=== PATIENT | male | born 1960 | race African-American/Black ===

== ENCOUNTER 2016-11-23 05:39 | Emergency (ER) | payer OTHER, SELFPAY ==
[2016-11-23] MEDS ORDERED: Lidocaine Viscous Sol 2% 15 ml UD Cup ONE (06:33)
== END 2016-11-23 06:45 | disposition home or self-care (01) ==
LOC: MADERS 05:39
DX: T18.5XXA Foreign body in anus and rectum, initial encounter (principal); E11.9 Type 2 diabetes mellitus without complications; I10 Essential (primary) hypertension; F17.210 Nicotine dependence, cigarettes, uncomplicated; X58.XXXA Exposure to other specified factors, initial encounter
CPT/HCPCS: 99283

== ENCOUNTER 2017-12-20 15:37 | Emergency (ER) | payer SELFPAY ==
[2017-12-20] MEDS ORDERED: Ketorolac Tromethamine 30 MG/ML VIAL ONE (15:59)
[2017-12-20] MEDS ORDERED: diphenhydrAMINE 50 MG/ML VIAL ONE (15:59)
[2017-12-20] MEDS ORDERED: Promethazine HCl 25 MG/ML VIAL ONE (15:59)
== END 2017-12-20 16:23 | disposition home or self-care (01) ==
LOC: MADERS 15:37
DX: R51 Headache (principal); E11.9 Type 2 diabetes mellitus without complications; I10 Essential (primary) hypertension; F17.210 Nicotine dependence, cigarettes, uncomplicated; R11.10 Vomiting, unspecified
CPT/HCPCS: 96372; 99283; J1200; J1885; J2550

== ENCOUNTER 2018-08-11 10:47 | Emergency (ER) | payer SELFPAY ==
[2018-08-11 11:19] LABS: #Basophils 0.1 thou/uL (0.0-0.2); #Eosinphils 0.1 thou/uL (0.0-0.7); #Monocytes 0.6 thou/uL (0.11-0.59); #Neutrophils 6.5 thou/uL (1.40-6.50); %Eosinophils 0.7 % (0.0-10.0); %Lymphocytes 12.1 % (21.0-51.0); %Monocytes 7.1 % (0.0-10.0); %Neutrophils 79.2 % (42.0-75.0); Hemoglobin 14.7 g/dL (14.0-18.0); Mean Corpuscular HGB CONC 33.6 g/dL (32.0-36.0); Mean Corpuscular Volume 92.3 fL (78.0-98.0); Platelet Count 220 thou/uL (130-400); RBC Distribution Width 11.4 % (11.5-14.5); Red Blood Cell (RBC) Count 4.75 mill/uL (4.70-6.10); White Blood Cell (WBC) Count 8.2 thou/uL (4.8-10.8)
[2018-08-11 11:22] LABS: Bilirubin Small (Negative); Blood, Urine Large (Negative); Clarity Cloudy (Clear); Glucose, Urine (Dipstick) Negative (Negative); Leukocyte Negative (Negative); Nitrite Negative (Negative); Protein, Urine (Dipstick) 100 mg/dL (Neg-Trace); pH, Urine 5.5 (5.0-9.0)
[2018-08-11 11:23] LABS: Bacteria/HPF Rare-Few HPF (None Seen); RBC/HPF GREATER THAN 50-TNTC HPF (0-3); Squamous Epithelial 0-3 HPF (0-3); WBC/HPF 0-3 HPF (0-3)
[2018-08-11 11:35] LABS: ALT (SGPT) 18 U/L (8-55); AST (SGOT) 20 U/L (5-34); Albumin 4.2 g/dL (3.5-5.0); Alkaline Phosphatase 80 U/L (40-150); Anion Gap 13 mmol/L (10-20); BUN (Urea Nitrogen) 13 mg/dL (8.4-25.7); Bilirubin, Total 1.2 mg/dL (0.2-1.2); Calc. Creatinine Clearance 0 mL/min (70-130); Calcium 9.4 mg/dL (7.8-10.44); Carbon Dioxide 31 mmol/L (22-29); Chloride 98 mmol/L (98-107); Estimated GFR-MDRD Greater than 90; Globulin 2.9 g/dL (2.4-3.5); Glucose 77 mg/dL (70-105); Lipase 8 U/L (8-78); Potassium 3.8 mmol/L (3.5-5.1); Protein, Total 7.1 g/dL (6.0-8.3); Sodium 138 mmol/L (136-145)
--- NOTE | 2018-08-11 11:39 | CT ---
CT ABDOMEN AND PELVIS PERFORMED WITHOUT CONTRAST ENHANCEMENT: HISTORY: Bilateral low back pain with blood in urine x 2 days. There are some infiltrative changes of the left lower lobe. The liver, spleen, and pancreas regions appear unremarkable on this noncontrast study. The gallbladd er is somewhat contracted. Right and left adrenal glands and right and left kidneys are normal in size. No obstruction. No beau al calculi. No mass identified on this noncontrast study. No ureteral calculi are seen. The lack o f intraabdominal fat degrades detail. No significant periaortic or mesenteric adenopathy is apprecia rebecca. There is a retroaortic left renal vein incidentally seen. CT OF PELVIS PERFORMED WITHOUT CONTRAST ENHANCEMENT: There is prostate calcification seen. The bladder is not distended. Appendix is difficult to defini tively identify. IMPRESSION: 1. Left lower lobe infiltrative-appearing lung change. 2. No renal or ureteral calculi and no obstruction. POS: [facility]
--- NOTE | 2018-08-11 12:22 | RAD ---
CHEST ONE VIEW: HISTORY: Chest pain. FINDINGS: Heart size and mediastinum are within normal limits. Lungs are clear of any infiltrative process. N o significant bony findings. IMPRESSION: No active intrathoracic disease. POS: [facility]
== END 2018-08-11 12:45 | disposition home or self-care (01) ==
LOC: MADERS 10:47
DX: M54.9 Dorsalgia, unspecified (principal); R30.0 Dysuria; I10 Essential (primary) hypertension; E11.9 Type 2 diabetes mellitus without complications; F17.210 Nicotine dependence, cigarettes, uncomplicated
CPT/HCPCS: 36415; 71045; 74176; 80053; 81003; 81015; 83690; 85025

== ENCOUNTER 2021-07-15 07:53 | Emergency (ER) | payer BC, SELFPAY ==
[2021-07-15] MEDS ORDERED: Sodium Chloride 0.9% 2,000 ML ONE (10:52)
[2021-07-15] MEDS ORDERED: Clindamycin/D5W 600 mg/50 ml Premix Bag ONE (10:52)
[2021-07-15 11:03] LABS: INR-International Normal Ratio 0.9; Prothrombin Time 12.4 sec (12.0-14.7)
[2021-07-15 11:04] LABS: #Basophils 0.1 thou/uL (0.0-0.2); #Lymphocytes 1.3 thou/uL (1.20-3.40); #Monocytes 0.5 thou/uL (0.11-0.59); #Neutrophils 5.7 thou/uL (1.40-6.50); %Basophils 1.3 % (0.0-1.0); %Eosinophils 0.3 % (0.0-10.0); %Lymphocytes 16.9 % (21.0-51.0); %Neutrophils 74.5 % (42.0-75.0); Hemoglobin 16.2 g/dL (14.0-18.0); Mean Corpuscular HGB CONC 33.1 g/dL (32.0-36.0); Mean Corpuscular Hemoglobin 30.1 pg (27.0-31.0); Mean Platelet Volume 7.8 fL (7.4-10.4); Platelet Count 261 thou/uL (130-400); Red Blood Cell (RBC) Count 5.38 mill/uL (4.70-6.10); White Blood Cell (WBC) Count 7.7 thou/uL (4.8-10.8)
[2021-07-15 11:10] LABS: Acetaminophen Less than 6.0 mcg/mL (10.0-30.0); Alcohol Less than 10 mg/dL (Less than 10); Salicylate Less than 8.0 mg/dL (15.0-30.0)
[2021-07-15 11:14] LABS: ALT (SGPT) 19 U/L (8-55); AST (SGOT) 37 U/L (5-34); Albumin 4.4 g/dL (3.4-4.8); Alkaline Phosphatase 92 U/L (40-110); Anion Gap 18 mmol/L (10-20); BUN (Urea Nitrogen) 11 mg/dL (8.4-25.7); Bilirubin, Total 1.6 mg/dL (0.2-1.2); Calc. Creatinine Clearance 0 mL/min (70-130); Calcium 9.3 mg/dL (7.8-10.44); Carbon Dioxide 25 mmol/L (23-31); Chloride 102 mmol/L (98-107); Globulin 3.3 g/dL (2.4-3.5); Glucose 97 mg/dL (80-115); Potassium 4.8 mmol/L (3.5-5.1); Protein, Total 7.7 g/dL (5.8-8.1); Sodium 140 mmol/L (136-145)
[2021-07-15 11:46] LABS: SARS-CoV-2 NAA Rapid Test Not Detected (NotDetected)
== END 2021-07-15 12:03 | disposition short-term general hospital (02) ==
LOC: MADERS 07:53
DX: S02.612A Fracture of condylar process of left mandible, initial encounter for closed fracture (principal); S02.611A Fracture of condylar process of right mandible, initial encounter for closed fracture; S02.66XA Fracture of symphysis of mandible, initial encounter for closed fracture; S02.2XXA Fracture of nasal bones, initial encounter for closed fracture; I10 Essential (primary) hypertension; E11.9 Type 2 diabetes mellitus without complications; F17.210 Nicotine dependence, cigarettes, uncomplicated; Y04.2XXA Assault by strike against or bumped into by another person, initial encounter; Z20.822 Contact with and (suspected) exposure to COVID-19
CPT/HCPCS: 70450; 70486; 80053; 80307; 85025; 85610; 96365; J3490; J7050; U0002

== ENCOUNTER 2021-07-21 08:39 | Emergency (ER) | payer BC | END 2021-07-21 09:49 | disposition home or self-care (01) | LOC: MADERS 08:39 | DX: G89.18 Other acute postprocedural pain (principal); S02.2XXD Fracture of nasal bones, subsequent encounter for fracture with routine healing; S02.6 Fracture of mandible; S02.621 Fracture of subcondylar process of right mandible; I10 Essential (primary) hypertension; E11.9 Type 2 diabetes mellitus without complications; F17.210 Nicotine dependence, cigarettes, uncomplicated; Z79.899 Other long term (current) drug therapy | CPT/HCPCS: 99283 ==

== ENCOUNTER 2025-05-10 08:15 | Emergency (ER) | payer OTHER ==
[2025-05-10] MEDS ORDERED: HYDROcodone/Acetaminophen 5/325 mg Tablet ONE (08:46)
[2025-05-10] MEDS ORDERED: Bacitracin 1 PK ONE (08:47)
[2025-05-10 08:58] LABS: INR-International Normal Ratio 1.0; Prothrombin Time 13.0 sec (12.0-14.7)
[2025-05-10 08:59] LABS: Hematocrit 41.1 % (42.0-52.0); Hemoglobin 12.9 g/dL (14.0-18.0); Mean Corpuscular Hemoglobin 29.8 pg (27.0-31.0); Mean Corpuscular Volume 94.8 fl (78.0-98.0); PTT 32.0 sec (22.9-36.1); Platelet Count 247 10x3/uL (130-400); Red Blood Cell (RBC) Count 4.33 mill/uL (4.70-6.10); White Blood Cell (WBC) Count 6.8 10x3/uL (4.8-10.8)
[2025-05-10] MEDS ORDERED: Iopamidol 370 76% 100 ML VIAL ONE (09:00)
[2025-05-10 09:05] LABS: ALT (SGPT) 10 U/L (Less than 45); AST (SGOT) 20 U/L (11-34); Albumin 3.5 g/dL (3.1-4.5); Alkaline Phosphatase 67 U/L (40-110); Anion Gap 15 mmol/L (10-20); BUN (Urea Nitrogen) 14 mg/dL (8.4-25.7); Bilirubin, Total 0.8 mg/dL (0.3-1.2); Calc. Creatinine Clearance 0 mL/min (70-130); Calcium 8.8 mg/dL (7.8-10.44); Carbon Dioxide 25 mmol/L (23-31); Chloride 105 mmol/L (98-107); Globulin 3.1 g/dL (2.4-3.5); Glucose 110 mg/dL (80-115); Potassium 3.9 mmol/L (3.5-5.1); Sodium 141 mmol/L (136-145)
[2025-05-10 09:11] LABS: MDiff Complete? YES; Manual Diff?? YES; Platelet Adequacy Comment Appears Adequate
[2025-05-10 09:55] LABS: Troponin I 0.025 ng/mL (< 0.028)
== END 2025-05-10 10:55 | disposition home or self-care (01) ==
LOC: MADERS 08:15
DX: S22.31XA Fracture of one rib, right side, initial encounter for closed fracture (principal); S01.21XA Laceration without foreign body of nose, initial encounter; I10 Essential (primary) hypertension; E11.9 Type 2 diabetes mellitus without complications; F17.210 Nicotine dependence, cigarettes, uncomplicated; Z23 Encounter for immunization; W01.198A Fall on same level from slipping, tripping and stumbling with subsequent striking against other object, initial encounter
CPT/HCPCS: 70450; 70486; 71260; 80053; 84484; 85025; 85610; 85730; 90471; 90715; 93005; Q9967